=== PATIENT | male | born 1995 | race Caucasian/White ===

== ENCOUNTER → 2022-03-10 18:41 | Outpatient (CLI) | payer OTHER, SELFPAY ==
--- NOTE | 2022-03-10 18:44 | DI.MRI.S_ITS ---
PROCEDURE: MR WRIST RT WO CON INDICATIONS: Sprain of carpal joint of right wrist TECHNIQUE: Noncontrast coronal proton density fast spin echo and T2 fast spin echo with fat saturation; coronal 3-D gradient echo, axial T1 spin echo and T2 fast spin echo with fat saturation, sagittal T1 spin echo through the wrist. COMPARISON: [facility], CR, XR WRIST 3+ VIEWS RIGHT, 02/28/2022, 14:56. FINDINGS: Image quality: Excellent. Bones and cartilage: The carpal bones are normally aligned. Subtle increased T2-weighted signal is seen within the proximal ulnar aspect of the lunate as well as within the ulnar head and the distal radius, without decreased signal on T1-weighted images. No significant joint effusion or synovitis is seen to suggest osteitis. No evidence for avascular necrosis. There is minimal spurring of the first metacarpal base. Carpal ligaments: The scapholunate and lunotriquetral ligaments appear intact. On sagittal images, the pisohamate ligament appears intact. Triangular fibrocartilage complex: Increased signal is seen within the ulnar styloid and foveal attachments of the triangular fibrocartilage, which may indicate chronic sprain/partial tear. No definite full-thickness triangular fibrocartilage tear is seen. Trace fluid in the distal radioulnar joint. Tendons and soft tissues: The carpal tunnel structures appear normal, including the median nerve. The ulnar nerve appears normal within Guyon's canal. Mild extensor carpi ulnaris tendinosis. The remaining extensor tendon compartments demonstrate normal morphology, without pathologic tendon sheath fluid. No soft tissue ganglion cysts. IMPRESSION: 1. Moderate grade sprains/partial tears of the ulnar styloid and foveal attachments of the triangular fibrocartilage. No definite full-thickness triangular fibrocartilage tear is seen. 2. Increased T2-weighted signal at the dorsal ulnar aspect of the triquetrum may be related to a remote prior avulsion injury or resolving contusion. 3. Subtle increased T2-weighted signal within the lunate, ulnar head, and distal radius is of uncertain etiology and may be related to inhomogeneous fat suppression versus healing osseous contusions or ulnar abutment syndrome. There is neutral ulnar variance. 4. Mild extensor carpi ulnaris tendinosis. Dictated by: Wilmer Cunningham M.D. on 03/11/2022 at 8:23 Approved by: Wilmer Cunningham M.D. on 03/11/2022 at 8:39
== END ==
PROVIDERS: Family Provider Pediatrics; PCP Pediatrics; Referring Provider Podiatrist; Visit Provider Podiatrist
DX: S63.511A Sprain of carpal joint of right wrist, initial encounter (principal); S63.591A Other specified sprain of right wrist, initial encounter; X58.XXXA Exposure to other specified factors, initial encounter
CPT/HCPCS: 73221

== ENCOUNTER 2023-05-24 15:58 | Emergency (ER) | payer OTHER, SELFPAY ==
[2023-05-24] VITALS (30 sets, daily range): BP systolic 114–142; BP diastolic 61–88; PULSE 54–96; RESP 12–22; TEMP 36.6; O2SAT 96–100; BMI 25.0
--- NOTE | 2023-05-24 16:00 | DI.RAD.S_ITS ---
PROCEDURE: XR ANKLE RT 2V INDICATIONS: skateboard accident/deformity TECHNIQUE: 2 views of the ankle were acquired. COMPARISON: None. FINDINGS: Bones: No fractures or dislocations. Trimalleolar fracture dislocation. Ankle mortise is normally aligned. No suspicious bony lesions. Soft tissues: No tibiotalar joint effusion. Achilles tendon appears normal. IMPRESSION: Trimalleolar fracture dislocation of the right ankle. Dictated by: Tanvir Duran M.D. on 05/24/2023 at 16:51 Approved by: Tanvir Duran M.D. on 05/24/2023 at 16:55
--- NOTE | 2023-05-24 16:32 | ED.LOWEXIN ---
HPI - Extremity Injury (Lower) General Chief Complaint: Extremity Injury, Lower Stated Complaint: Fell off skateboard, R ankle Time Seen by Provider: 05/24/23 16:00 History of Present Illness HPI Narrative: 28-year-old male presents for ankle pain after a skateboard injury. Patient was riding on a skateboard when he fell, twisting his ankle. There is an obvious deformity to the right ankle. Placed in supportive pillow splint and transferred for evaluation. Related Data Home Medications Medication Instructions Recorded Confirmed EPINEPHRINE (#EPIPEN) 1 mg MR PRN ##0 05/25/11 Previous Rx's Medication Instructions Recorded hydrocodone 5 mg-acetaminophen 325 1 tab PO TID PRN pain #14 tabs 05/24/23 mg tablet methocarbamol 500 mg tablet 500 mg PO TID #30 tabs 05/24/23 Allergies Allergy/AdvReac Type Severity Reaction Status Date / Time venom-honey bee Allergy Severe RESPIRATORY Verified 05/24/23 17:26 [BEE VENOM (HONEY BEE)] Review of Systems Review of Systems Narrative: Negative except as noted above Exam Initial Vital Signs Initial Vital Signs: Vital Signs Pulse Rate 64 05/24/23 16:04 Blood Pressure 139/73 05/24/23 16:04 Pulse Oximetry 100 05/24/23 16:04 Const: Awake, alert, obvious deformity to right ankle Cardiac: regular rate, regular rhythm RESP: unlabored, clear bilaterally, no wheezing GI: Atraumatic, soft, nontender, nondistended, no rebound, no guarding MSK: Obvious deformity right ankle, palpable DP pulses, intact sensation, able to wiggle toes Skin: Warm, Dry, intact, no rashes Neuro: AO x3, CN II-XII grossly intact, moves all extremities Procedures Orthopedic Joint Reduction Joint #1: Time of procedure: 16:51 Time Out Performed: Yes Side: right Joint Reduction Location: ankle Analgesia: procedural sedation Technique used: traction/counter-traction and direct manipulation Post-reduction neuro exam: intact Post-reduction vascular: intact Post Reduction X-Ray Obtained: Yes Post Reduction X-Ray Results: reduced Splint Applied: Yes Patient Tolerated Procedure: Well and No complications Procedural Sedation Consent signed: Yes Time out performed: Yes Indication: fracture/dislocation reduction ASA Class: I Mallampati Airway Classification: Class II Preparation: surveillance monitor applied, pulse oximeter, capnometry used, supplemental O2 applied, suction/airway equipment at bedside and IV secured Ketamine dose (mg): 80 Intraservice time/total sedation time (min): 15 ED Sedation Level: Moderate (Concious) Patient Tolerated Procedure: Well Complications: none Interventions: Airway repositioned Course Course Course Narrative: Obvious ankle fracture dislocation. No open wounds. Plan to perform conscious sedation for reduction. Orders Ordered: ED Orders 05/24/23 16:00 XR ankle RT 2V Stat 05/24/23 16:58 XR ankle RT 2V Stat Discontinued Medications Ketorolac Tromethamine (Ketorolac 30 Mg/Ml Vial) 15 mg IV NOW ONE Stop: 05/24/23 16:01 Last Admin: 05/24/23 17:32 Dose: 15 mg Documented By: TEP Morphine Sulfate (Morphine 4 Mg/Ml Inj) 4 mg IV NOW ONE Stop: 05/24/23 16:01 Last Admin: 05/24/23 17:32 Dose: 4 mg Documented By: TEP Reevaluation(s) Reevaluation #1: Ankle reduced per procedure note. Crutches given. Orthopedic referral provided. Cast care and instructions discussed at bedside with patient and mother. Signs and symptoms of compartment syndrome as well as strict ED return precautions discussed with mother and patient. Vital Signs Vital signs: Vital Signs - 8 hr 05/24/23 16:04 05/24/23 16:04 05/24/23 16:05 Temperature Pulse Rate 64 59 L Respiratory Rate Blood Pressure 139/73 Pulse Oximetry 100 100 Oxygen Delivery Method 05/24/23 16:08 05/24/23 16:10 05/24/23 16:15 Temperature 97.8 F Pulse Rate 56 L 57 L 56 L Respiratory Rate 16 14 19 Blood Pressure 139/73 Pulse Oximetry 98 100 100 Oxygen Delivery Method Room Air 05/24/23 16:20 05/24/23 16:25 05/24/23 16:30 Temperature Pulse Rate 56 L 68 62 Respiratory Rate 16 22 18 Blood Pressure Pulse Oximetry 100 96 96 Oxygen Delivery Method 05/24/23 16:31 05/24/23 16:31 05/24/23 16:35 Temperature Pulse Rate 60 68 Respiratory Rate 19 14 Blood Pressure 139/64 Pulse Oximetry 98 99 Oxygen Delivery Method 05/24/23 16:40 05/24/23 16:45 05/24/23 16:49 Temperature Pulse Rate 55 L 63 70 Respiratory Rate 16 20 17 Blood Pressure Pulse Oximetry 100 100 100 Oxygen Delivery Method 05/24/23 16:49 05/24/23 16:50 05/24/23 16:50 Temperature Pulse Rate 62 Respiratory Rate 20 Blood Pressure 123/73 124/76 Pulse Oximetry 100 Oxygen Delivery Method 05/24/23 16:55 05/24/23 16:55 05/24/23 17:00 Temperature Pulse Rate 58 L 96 H Respiratory Rate 12 16 Blood Pressure 130/83 Pulse Oximetry 100 100 Oxygen Delivery Method 05/24/23 17:00 05/24/23 17:05 05/24/23 17:05 Temperature Pulse Rate 92 H Respiratory Rate 15 Blood Pressure 141/88 H 142/80 H Pulse Oximetry 100 Oxygen Delivery Method 05/24/23 17:08 05/24/23 17:10 05/24/23 17:10 Temperature Pulse Rate 54 L 78 Respiratory Rate 16 15 Blood Pressure 142/72 H Pulse Oximetry 100 Oxygen Delivery Method 05/24/23 17:15 05/24/23 17:15 05/24/23 17:20 Temperature Pulse Rate 64 63 Respiratory Rate 16 13 Blood Pressure 141/87 H Pulse Oximetry 100 100 Oxygen Delivery Method 05/24/23 17:20 05/24/23 17:25 05/24/23 17:25 Temperature Pulse Rate 64 Respiratory Rate 16 Blood Pressure 124/77 127/74 Pulse Oximetry 100 Oxygen Delivery Method 05/24/23 17:30 05/24/23 17:30 05/24/23 17:34 Temperature Pulse Rate 65 64 Respiratory Rate 14 12 Blood Pressure 125/78 116/61 Pulse Oximetry 100 99 Oxygen Delivery Method 05/24/23 17:35 05/24/23 17:35 05/24/23 17:40 Temperature Pulse Rate 65 67 Respiratory Rate 16 14 Blood Pressure 116/61 Pulse Oximetry 99 99 Oxygen Delivery Method 05/24/23 17:40 05/24/23 17:45 05/24/23 17:45 Temperature Pulse Rate 61 Respiratory Rate 12 Blood Pressure 117/63 116/61 Pulse Oximetry 98 Oxygen Delivery Method 05/24/23 17:50 Temperature Pulse Rate 63 Respiratory Rate 17 Blood Pressure Pulse Oximetry 98 Oxygen Delivery Method MDM - Extremity Injury (Lower) Differential Diagnosis Differential diagnosis: Likely ankle sprain and strain, acute internal derangement of knee and fracture of femur Discharge Plan Departure Patient Disposition: Home Clinical Impression: Closed trimalleolar fracture of ankle Qualifiers: Encounter type: initial encounter Laterality: right Qualified Code(s): S82.851A - Displaced trimalleolar fracture of right lower leg, initial encounter for closed fracture Instructions: Ankle Fracture Activity Restrictions/Additional Instructions: You were seen today for an ankle fracture. Your ankle was reduced and placed in a non permanent cast. You will need to not bear weight on this leg and use the provided crutches to get around. An orthopedic referral has been placed in the computer with Dr. Pizano of [facility]. Please call 1st thing tomorrow morning to make a follow up appointment. A muscle relaxer and a pain medication has been sent to the [facility] in [place]. Please take these with Motrin for pain. Keep your leg elevated as much as possible. Prescriptions: New methocarbamol 500 mg tablet 500 mg PO TID Qty: 30 0RF hydrocodone-acetaminophen 5-325 mg tablet 1 tab PO TID PRN (Reason: pain) Qty: 14 0RF No Action EPINEPHRINE (#EPIPEN) 1 mg MR PRN Qty: 0 Referrals: Tommie Pizano MD [Physician] - Stand Alone Forms: Patient Portal/API
[2023-05-24] MEDS: KETAMINE 50 MG/5 ML *SYRINGE 90 MG IV (16:50)
--- NOTE | 2023-05-24 16:58 | DI.RAD.S_ITS ---
PROCEDURE: XR ANKLE RT 2V INDICATIONS: POST REDUCTION TECHNIQUE: 3 views of the ankle were acquired. COMPARISON: [facility], CR, XR ANKLE RT 2V, 05/24/2023, 16:20. FINDINGS: Bones: Medial malleolar and distal oblique fibular fracture shows improved alignment in overlying fiberglass splint. Tibiotalar joint is aligned Soft tissues: No tibiotalar joint effusion. Achilles tendon appears normal. IMPRESSION: Prior ankle fracture dislocation has been reduced. Fracture fragments show near anatomic alignment. Approved by: Jacob Reveles M.D. on 05/24/2023 at 16:38
[2023-05-24] MEDS: KETOROLAC 30 MG/ML VIAL 15 MG IV (17:32)
[2023-05-24] MEDS: MORPHINE 4 MG/ML INJ IV (17:32)
--- NOTE | 2023-05-24 17:50 | PC.NURSE ---
R-ankle reduction, pt tolerated procedure well. Mother at bedside, will take pt home with her tonight.
== END 2023-05-24 18:17 | disposition home or self-care (01) ==
PROVIDERS: Emergency Provider Emergency Medicine; Family Provider Pediatrics; PCP Pediatrics
DX: S82.851A Displaced trimalleolar fracture of right lower leg, initial encounter for closed fracture (principal); V00.131A Fall from skateboard, initial encounter
CPT/HCPCS: 27818; 73600; 96374; 96375; 99152; 99284; J1885; J2270